=== PATIENT | female | born 1995 | race Native Hawaiian/Other Pacific Islander ===

== ENCOUNTER 2018-06-21 14:12 | Emergency (ER) | payer OTHER ==
[2018-06-21 14:34] VITALS: BP 107/69; O2SAT 97
--- NOTE | 2018-06-21 15:47 | C.PDOC ---
History Of Present Illness 22-year-old female, () presents to the emergency department with complaints of vaginal bleeding. Patient states she saw blood when urinating today. Patient states she thought she was 19 weeks , but she had an ultrasound on 05/02 which showed IUP at 21 13 weeks and 6 days. She is currently 21 weeks . No vaginal bleeding or spotting since. No other complaints at this time. Time Seen by Provider: 06/21/18 14:41 Chief Complaint (Nursing): Female Genitourinary History Per: Patient History/Exam Limitations: no limitations Past Medical History Reviewed: Historical Data, Nursing Documentation, Vital Signs Vital Signs: Last Vital Signs Temp 98.0 F 06/21/18 23:15 Pulse 84 06/21/18 23:15 Resp 20 06/21/18 23:15 BP 107/69 06/21/18 14:25 Pulse Ox 97 06/21/18 15:49 Family History: States: No Known Family Hx - Social History Hx Alcohol Use: No Hx Substance Use: No - Immunization History Hx Tetanus Toxoid Vaccination: No Hx Influenza Vaccination: No Hx Pneumococcal Vaccination: No Review Of Systems Gastrointestinal: Negative for: Nausea, Vomiting, Abdominal Pain Genitourinary: Positive for: Vaginal Bleeding. Negative for: Dysuria, Pelvic Pain Physical Exam - Physical Exam Appears: Non-toxic, No Acute Distress Skin: Normal Color, Warm, Dry, No Rash Head: Atraumatic, Normacephalic Eye(s): bilateral: Normal Inspection, PERRL, EOMI Nose: Normal Oral Mucosa: Moist Lips: Normal Appearing Neck: Normal ROM Cardiovascular: Rhythm Regular, No Murmur Respiratory: Normal Breath Sounds, No Accessory Muscle Use Gastrointestinal/Abdominal: Soft, No Tenderness, No Guarding, No Rebound, Other (+gravid) Back: Normal Inspection Extremity: Normal ROM, No Deformity Neurological/Psych: Oriented x3, Normal Speech ED Course And Treatment O2 Sat by Pulse Oximetry: 97 (RA) Pulse Ox Interpretation: Normal Medical Decision Making Medical Decision Making: Pt admitted to L&D Disposition - Disposition Disposition: HOME/ ROUTINE Disposition Time: 15:45 Condition: GOOD Forms: [facility] (Romansh) - Clinical Impression Clinical Impression: Vaginal bleeding in - Scribe Statement The provider has reviewed the documentation as recorded by the Scribe (Rafita Villasenor) Provider Attestation: All medical record entries made by the Scribe were at my direction and personally dictated by me. I have reviewed the chart and agree that the record accurately reflects my personal performance of the history, physical exam, medical decision making, and the department course for this patient. I have also personally directed, reviewed, and agree with the discharge instructions and disposition.
[2018-06-21 17:20] LABS: SQUAMOUS EPITHIAL < 1 /hpf (0-5); URINE BILIRUBIN NEGATIVE (NEGATIVE); URINE BLOOD NEGATIVE (NEGATIVE); URINE CLARITY Clear (Clear); URINE COLOR Yellow (YELLOW); URINE GLUCOSE (UA) NORMAL (Normal); URINE LEUKOCYTE ESTERASE NEG Leu/uL (Negative); URINE PROTEIN NEGATIVE (NEGATIVE); URINE UROBILINOGEN NORMAL mg/dL (0.2-1.0)
--- NOTE | 2018-06-21 19:04 | OBHP ---
Datetime: 06/21/2018 16:32 IP Adm Impression: , intrauterine IP Admit Plan: Discharge home Admit Comment, IP Provider: PGY2 Triage Note for Dr. Garcia Patient is a 22 year old , LMP: 02/03/18, GAURAV: 11/01/18, 21 weeks who presents for vaginal spott ing. Today around 1300 patient went to urinate and noticed bright red blood on the toilet paper. Kellie palacios called her nurse practicioner at [facility] who recommended patient come to the ER to be evaluated. Patient has had no bleeding since. Patient denies any vaginal discharge. Patient denies a ny abdominal pain or cramping. Patient last had sexual intercourse 4 days ago. Patient has been feeli ng movement. Patient urinates about 7 times per day (baseline during ) and drinks 5 gl asses of water per day. Patient denies any headaches, nausea, vomiting, dysuria, diarrhea, or constip ation. 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 Davis, no complications, last visit 06/11 OBhx: denies Gynhx: 12, irregular, 7 days of heavy bleeding, no hx of STIs. PCOS diagnosed 2 years ago, untreat ed PMHx: denies Surghx: denies Allergies: denies Meds: vitamins Socialhx: used to drink alcohol for special occasions, stopped during , denies tobacco or drugs; dating FOB, currently working at [employer] Famhx: Mom: 47 y/o, healthy Dad: 55 y/o, healthy P.E.: as above. WD in NAD; slightly anxious. Awake, alert, oriented to time, person and place. Pl easant and cooperative. Accompanied by FOB Assessment: 22 y/o at 21 weeks presents for 1 episode of vaginal spotting and white discharge on vaginal exam consistent with vaginal candidiasis. heart rate consistent with gestational ag e. Patient is clinically stable. Plan: 1. Diflucan 150mg po x 1 dose 2. Keep scheduled clinic appointment 07/12/18 3. Discharge home PGY2, Risa Wolaniuk Attending Note: patient seen, examined and evaluated by me with the resident. I agree withthe abov e assessment and plan as documented above. Extremities - PN: Normal Abdomen - PN: Normal Lungs - PN: Normal Heart - PN: Normal Neurologic - PN: Normal HEENT - PN: Normal General - PN: Normal FHR - Baseline A Provider: 155 Comments, ACOG Physical Exam: Fundus: at umbilicus Vaginal exam: friable cervix with moderate white particulate discharge All other systems reviewed and are negative Gestation - Est Wks by US: 21.0 EGA AdmitDate IP: 21.0 Vital Signs Provider: Reviewed; Within Normal Limits IP Chief Complaint: Vaginal bleeding NICHD Variability Prov Fetus A: n/a NICHD Accel Fetus A IP Provider: n/a Dilatation, Provider: 0 Effacement, Provider: 0 Station, Provider: N/A
[2018-06-21 23:16] VITALS: PULSE 84; RESP 20; TEMP 98
== END 2018-06-21 19:14 | disposition home or self-care (01) ==
LOC: C.EROB 14:12 → C.ER 14:12 → C.EROB 19:14
DX: O26.852 Spotting complicating pregnancy, second trimester (principal); O98.812 Other maternal infectious and parasitic diseases complicating pregnancy, second trimester; B37.3 Candidiasis of vulva and vagina; Z3A.21 21 weeks gestation of pregnancy

== ENCOUNTER 2018-10-25 21:22 | Inpatient (IN) | payer OTHER ==
--- NOTE | 2018-10-25 22:06 | OBADHP ---
Datetime: 10/25/2018 21:59 Admit Comment, IP Provider: 22 y/o at 39 wks with c/o ctx since this afternoon. Pt has no c/o V B or LOF.+ FM PMH: Denies PSH: Denies POBH: Primigravid Social H: denies ALL: NKDA Labs: B positive, RPR NR, HIV NR, Hep B NR BGS- Negative VE: /-2 TOCO: Ctx q 2-3 min EFM: Cat 1 Bed side : Us Vertex A/P : Admit to L_D IVF Epidural for anesthesia GBS- Negative Labs Pelvic Type - PN: Adequate Extremities - PN: Normal Abdomen - PN: Normal Back - PN: Normal Breast - PN: Normal Lungs - PN: Normal Heart - PN: Normal Thyroid - PN: Normal Neurologic - PN: Normal HEENT - PN: Normal General - PN: Normal Presentation-Admit: Vertex FHR - Baseline A Provider: 130 Membranes, Provider: Intact Comments, ACOG Physical Exam: ABD: Soft, NT Gestation - Est Wks by US: 39.0 Vital Signs Provider: Reviewed; Within Normal Limits IP Chief Complaint: Uterine contractions NICHD Variability Prov Fetus A: Moderate 6-25bpm NICHD Accel Fetus A IP Provider: [id number] FHR Category Provider Fetus A: Category I NICHD Decel Fetus A IP Provider: None Dilatation, Provider: 5 Effacement, Provider: 90 Station, Provider: -2 Genitourinary Exam: Normal DTRs - PN: Normal EGA AdmitDate IP: 39.0 IP Adm Impression: Term, intrauterine ; Active labor IP Admit Plan: Initiate labor protocol
[2018-10-25 22:08] VITALS: BMI 31.7
[2018-10-25] MEDS ORDERED: Lactated Ringer's 1,000 ML IV ONE (22:10)
[2018-10-25 22:39] LABS: BASO # 0.1 K/uL (0.0-0.2); BASO % 0.8 % (0.0-2.0); EOS # 0.1 K/uL (0.0-0.7); EOS % 0.7 % (0.0-4.0); HEMOGLOBIN 13.2 g/dL (11.0-16.0); LYMPH # 2.8 K/uL (1.0-4.3); MEAN CELL VOLUME 88.4 fL (81.0-99.0); MEAN CORPUSCULAR HEMOGLOBIN 29.4 pg (27.0-31.0); MEAN CORPUSCULAR HGB CONC 33.3 g/dL (33.0-37.0); MEAN PLATELET VOLUME 8.1 fL (7.2-11.7); MONO # 0.9 K/uL (0.0-0.8); MONO % 7.8 % (0.0-10.0); NEUT # 8.2 K/uL (1.8-7.0); NEUT % 67.7 % (50.0-75.0); NRBC % 0.1 % (0.0-2.0); RBC 4.47 Mil/uL (3.80-5.20); RED CELL DISTRIBUTION WIDTH 14.2 % (11.5-14.5); WHITE BLOOD COUNT 12.1 K/uL (4.8-10.8)
[2018-10-25 22:43] LABS: SQUAMOUS EPITHIAL 8 /hpf (0-5); URINE BACTERIA OCC (<OCC); URINE BILIRUBIN NEGATIVE (NEGATIVE); URINE BLOOD 3+ (NEGATIVE); URINE CLARITY Hazy (Clear); URINE COLOR Yellow (YELLOW); URINE GLUCOSE (UA) NORMAL (Normal); URINE LEUKOCYTE ESTERASE 2+ Leu/uL (Negative); URINE PROTEIN NEGATIVE (NEGATIVE); URINE UROBILINOGEN NORMAL mg/dL (0.2-1.0)
[2018-10-25 22:52] LABS: ALB/GLOB RATIO 1.4 (1.0-2.1); ALBUMIN 4.2 g/dL (3.5-5.0); BLOOD UREA NITROGEN 12 mg/dL (7-17); CALCIUM 9.4 mg/dl (8.6-10.4); GFR NON-AFRICAN AMERICAN > 60
[2018-10-25 23:13] LABS: ALT/SGPT 27 U/L (9-52); AST/SGOT 43 U/L (14-36)
[2018-10-25] MEDS ORDERED: Bupivacaine HCl/FentaNYL Cit 100 ML EPI ONE (23:31)
[2018-10-26] MEDS ORDERED: Lidocaine 2% MPF (5 ml) Inj ONE (04:06)
[2018-10-26] MEDS ORDERED: Lidocaine Hydrochloride 5 ML INJ ONE (04:12)
--- NOTE | 2018-10-26 04:39 | OBDS ---
DELIVERY PERSONNEL Delivery Doctor: DR PACHECO Architectural Drafter: Madisyn Altamirano RN Anesthesiologist: Shira Oliveira MD MATERNAL INFORMATION Delivery Anesthesia: Local; Epidural Medications in Delivery: PITOCIN 20 UNITS LR Placenta Cultured: No Maternal Complications: None Provider Comments: Tight nuchal x 1 clamped and cut at the perineum LABOR SUMMARY EDC: 11/01/2018 00:00 No. Babies in Womb: 1 Attempted: No Labor Anesthesia: Epidural LABOR INFORMATION Onset of Labor: 10/25/2018 16:00 Complete Dilatation: 10/26/2018 00:45 Group B Beta Strep: Negative Antibiotics # of Doses: 0 Steroids Given: None Reason Steroids Not Administered: Not Applicable MEMBRANES Membranes Rupture Method: Spontaneous Rupture of Membranes: 10/25/2018 22:13 Length of Rupture (hrs): 5.83 Amniotic Fluid Color: Clear Amniotic Fluid Amount: Moderate Amniotic Fluid Odor: Normal STAGES OF LABOR Stage 1 hrs: 8 Stage 1 min: 45 Stage 2 hrs: 3 Stage 2 min: 18 Stage 3 hrs: 0 Stage 3 min: 10 Total Time in Labor hrs: 12 Total Time in Labor min: 13 VAGINAL DELIVERY Episiotomy: None Laceration Extension: Second Degree Laceration Type: Perineal Laceration Repair: Yes Laceration Repair Note: Repeaired with 2-0 and 3-0 vicryl sutures Initial Vag Sponge Count: 10+1 Lap Initial Vag Sharps Count: 0 Sponge Count Correct: Yes Sharps Count Correct: Yes BABY A INFORMATION Delivery Date/Time: 10/26/2018 04:03 Method of Delivery: Vaginal Born in Route : No : N/A Forceps: N/A Vacuum Extraction: N/A Shoulder Dystocia : No SHOULDER DYSTOCIA BABY A Infant Delivery Date/Time: 10/26/2018 04:03 PRESENTATION/POSITION BABY A Presentation: Cephalic Cephalic Presentation: Vertex Vertex Position: Right Occipital Anterior Breech Presentation: N/A PLACENTA INFORMATION BABY A Placenta Delivery Time : 10/26/2018 04:13 Placenta Method of Delivery: Spontaneous Placenta Status: Delivered SCORES BABY A Heart Rate 1 min: >100 bpm Resp Effort 1 min: Good Cry Reflex Irritability 1 min: Cough or Sneeze or Pulls Away Muscle Tone 1 min: Active Motion Color 1 min: Body [place], Extremities Blue SCORE 1 MIN: 9 Heart Rate 5 min: >100 bpm Resp Effort 5 min: Good Cry Reflex Irritability 5 min: Cough or Sneeze or Pulls Away Muscle Tone 5 min: Active Motion Color 5 min: Body [place], Extremities Blue SCORE 5 MIN: 9 INFANT INFORMATION BABY A Gestational Age at Delivery: 39.1 Gestational Status: Term Outcome : Liveborn Condition : Stable Infant Sex: Male IDENTIFICATION/MEDS BABY A ID Band Number: [id number] ID Band Location: Left Leg; Left Arm Sensor Applied: Yes Sensor Number: [id number] Sensor Location : Cord Clamp WEIGHT/LENGTH BABY A Birthweight (gms): 3115 Infant Weight (lb): 6 Infant Weight (oz): 14 Infant Length Inches: 19.50 Length cms: 49.5 CORD INFORMATION BABY A No. Cord Vessels: 3 Nuchal Cord : Around Neck x1, Tight Cord Blood Taken: Yes Suction: Mouth; Nose ASSESSMENT BABY A Complications: None Physical Findings at Delivery: Caput Succedaneum Respirations: Appears Normal Rural Service Engineer/ALS Called : No Infant Care By: DR HUYNH Transferred To: Remains with Mother
[2018-10-26] MEDS ORDERED: Oxytocin 30 UNIT 30 UNITS/500 ML BAG IV ONE (04:42)
[2018-10-26] MEDS ORDERED: Benzocaine/Menthol 20%-0.5% Topical Spray (60 ml) TOP PRN (04:42)
[2018-10-26] MEDS: Multiple Vitamins Tab PO SCH (09:19)
[2018-10-27 07:40] LABS: BASO % 0.3 % (0.0-2.0); EOS # 0.1 K/uL (0.0-0.7); EOS % 0.7 % (0.0-4.0); LYMPH # 3.8 K/uL (1.0-4.3); LYMPH % 23.7 % (20.0-40.0); MEAN CELL VOLUME 88.8 fL (81.0-99.0); MEAN CORPUSCULAR HEMOGLOBIN 29.1 pg (27.0-31.0); MEAN CORPUSCULAR HGB CONC 32.8 g/dL (33.0-37.0); MEAN PLATELET VOLUME 7.9 fL (7.2-11.7); MONO # 1.2 K/uL (0.0-0.8); MONO % 7.2 % (0.0-10.0); NEUT % 68.1 % (50.0-75.0); NRBC % 0.1 % (0.0-2.0); RBC 3.82 Mil/uL (3.80-5.20); RED CELL DISTRIBUTION WIDTH 14.2 % (11.5-14.5); WHITE BLOOD COUNT 16.2 K/uL (4.8-10.8)
[2018-10-27 08:01] LABS: HEMOGLOBIN 11.1 g/dL (11.0-16.0)
[2018-10-27] MEDS: Multiple Vitamins Tab PO SCH (09:04)
--- NOTE | 2018-10-27 18:02 | OBPPN ---
Datetime: 10/27/2018 10:49 PP Pain Prov: Within normal limits PP Nausea Prov: Denies PP Flatus Prov: Yes PP Breasts Prov: Not Done PP Heart Prov: Normal PP Lungs Prov: Normal PP Abdomen/Uterus Prov: Normal PP Lochia Prov: Normal PP Vulva/Perineum Prov: Normal PP CVA Tenderness Prov: Normal PP Extremities Prov: Normal PP C/S Incision Prov: Not Applicable PP Progress Prov: Normal PP Comments Phys Exam Prov: Fundus Firm, below umbilicus and non-tender PP Impression Prov: Normal progression PP Plan Prov: Continue present management PP Progress Note Prov: PPD # 1 S/P PP H_H 11.1/33.9 Perineal discomfort with stitches and encouraged to use Dermoplast and Tucks given Stable and Satisfactory condition and recovery Advance care Anticipate a vaginal delivery IP PP Procedures: None Vital Signs Provider PP: Reviewed
[2018-10-28] MEDS ORDERED: Influenza Vaccine 60 mcg/0.5 mL SYR (4YR UP) IM ONE (08:56)
[2018-10-28 09:30] VITALS: BP 96/47; PULSE 78; RESP 18; TEMP 97.7; O2SAT 97
[2018-10-28] MEDS: Multiple Vitamins Tab PO SCH (09:59)
--- NOTE | 2018-10-28 12:25 | OBPPN ---
Datetime: 10/28/2018 12:20 PP Pain Prov: Within normal limits PP Nausea Prov: Denies PP Breasts Prov: Normal PP Lochia Prov: Normal PP Impression Prov: Normal progression PP Plan Prov: Discharge PP Progress Note Prov: s/p PPD#2 - stable, afebrile - +breast/bottle - d/c home Vital Signs Provider PP: Reviewed
--- NOTE | 2018-10-28 12:29 | OBDCSUM ---
Datetime: 10/28/2018 12:27 Discharged to, Provider: Home Follow up at, Provider: Clinic Disch Instr Activity: Normal activity Disch Instr Diet: Regular Discharge Instructions, Provider: Routine instructions given Discharge Diagnosis, Provider: Term Delivered Discharge Time: 10/28/2018 12:27 Follow up in weeks, Provider: 6 weeks Datetime: 10/28/2018 09:09 Discharged to, Provider: Home Follow up at, Provider: [facility] Disch Instr Activity: Normal activity Disch Instr Diet: Regular Follow up in weeks, Provider: 6 weeks post Disch Referrals: None
== END 2018-10-28 14:30 | disposition home or self-care (01) | DRG 373 ==
LOC: C.EROB 21:22 → C.4D 21:58 → C.4M 10-26 06:34
PROVIDERS: ADMIT Obstetrics & Gynecology; ATTEND Obstetrics & Gynecology
PROC: 10E0XZZ Delivery of Products of Conception, External Approach (ICD-10-PCS; principal; 2018-10-26)
PROC: 0KQM0ZZ Repair Perineum Muscle, Open Approach (ICD-10-PCS; 2018-10-26)
DX: O69.1XX0 Labor and delivery complicated by cord around neck, with compression, not applicable or unspecified (principal); O70.1 Second degree perineal laceration during delivery; Z3A.39 39 weeks gestation of pregnancy; Z37.0 Single live birth